=== PATIENT | male | born 1945 | race African-American/Black ===

== ENCOUNTER 2024-03-03 13:41 | Emergency (ER) | payer OTHER ==
[~2024-03-03] VITALS: Ht 177.8 cm; Wt 72.0 kg
[~2024-03-03 13:41] MED LIST: ACET-2708 MT
[2024-03-03 13:47] VITALS: TEMP 98.2; O2SAT 100
[2024-03-03] MEDS: IBUPROFEN 600MG TABLET PO STA (14:19)
[2024-03-03] MEDS ORDERED: GABA300C MT (16:24)
[2024-03-03] MEDS ORDERED: IBUP-2029 MT (16:25)
[2024-03-03 17:31] VITALS: BP 152/81; PULSE 75; RESP 16
== END 2024-03-03 17:34 | disposition home or self-care (01) ==
LOC: ER 15:11
DX: S20.212A Contusion of left front wall of thorax, initial encounter (principal); I10 Essential (primary) hypertension; W18.30XA Fall on same level, unspecified, initial encounter; Y93.89 Activity, other specified; Y92.89 Other specified places as the place of occurrence of the external cause; Y99.8 Other external cause status
CPT/HCPCS: 71045; 71250; 74176; 99284